=== PATIENT | female | born 2000 | race Two or more races ===

== ENCOUNTER 2024-02-27 20:42 | Inpatient (IN) | payer BC ==
[~2024-02-27] VITALS: Ht 152.4 cm; Wt 65.7 kg
[2024-02-27 21:37] LABS: COVID AG,FIA SOURCE NASAL SWAB
[2024-02-27] MEDS: HALOPERIDOL LACTATE 5 MG/ML VIAL IM ONE (21:46)
[2024-02-27] MEDS: LORazepam 2 MG/ML VIAL IM ONE (21:46)
[2024-02-27] MEDS: DiphenhydrAMINE HCL 50 MG/ML VIAL IM ONE (21:46)
[2024-02-27 21:50] LABS: BASOPHILS % (AUTO) 0.7 % (0.0-2.0); EOSINOPHILS % (AUTO) 0.7 % (1.0-6.0); HEMATOCRIT 42.7 % (36-46); HEMOGLOBIN 14.2 g/dL (12.0-16.0); LYMPHOCYTES # (AUTO) 2.3 K/uL (1.0-4.8); LYMPHOCYTES % (AUTO) 21.4 % (22.0-44.0); MEAN CORPUSCULAR HEMOGLOBIN 30.8 pg (26.0-34.0); MEAN CORPUSCULAR HGB CONC 33.3 G/dL (31.0-37.0); MEAN CORPUSCULAR VOLUME 92 fL (80-100); MONOCYTES # (AUTO) 0.3 K/uL (0.1-1.0); MONOCYTES % (AUTO) 2.7 % (2.0-9.0); NEUTROPHILS # (AUTO) 8.1 K/uL (1.8-7.7); NEUTROPHILS % (AUTO) 74.5 % (40.0-70.0); PLATELET COUNT (AUTO) 422 K/uL (150-450); RED BLOOD CELL COUNT(AUTO) 4.62 MIL/uL (4.00-5.20); RED CELL DISTRIBUTION WIDTH 13.4 % (11.5-14.5); WHITE BLOOD COUNT (AUTO) 10.9 K/uL (4.5-11.0)
[2024-02-27 21:55] LABS: ANION GAP 11 mmol/L (8-16); CALCIUM, TOTAL 8.6 mg/dL (8.8-10.5); CARBON DIOXIDE 26 mmol/L (22-29); CHLORIDE 106 mmol/L (98-107); CREATININE 0.87 mg/dL (0.60-1.30); GLOMERULAR FILTR. RATE CALC > 60 mL/min (>60); GLUCOSE,RANDOM 126 mg/dL (70-110); POTASSIUM 3.8 mmol/L (3.5-5.1); SODIUM SERUM 143 mmol/L (136-145); UREA NITROGEN, BLOOD 9 mg/dL (7-18)
[2024-02-27 21:56] LABS: ALCOHOL, BLOOD (SERUM) 262 mg/dL (0-10)
[2024-02-27 21:58] LABS: SARS-COV2 (COVID) ANTIGEN,FIA Negative (Negative)
[2024-02-28 00:32] LABS: PH,URINE DRUG SCREEN 5.5 (5.0-8.0)
[2024-02-28 00:43] LABS: ALCOHOL, URINE DRUG SCREEN POSITIVE (NEGATIVE); AMPHET/METH SCREEN,URINE NEGATIVE (NEGATIVE); BARBITURATE SCREEN, URINE NEGATIVE (NEGATIVE); BENZODIAZEPINES SCREEN,URINE POSITIVE (NEGATIVE); CANNABINOID SCREEN,URINE NEGATIVE (NEGATIVE); COCAINE SCREEN,URINE NEGATIVE (NEGATIVE); METHADONE SCREEN, URINE NEGATIVE (NEGATIVE); OPIATE SCREEN,URINE NEGATIVE (NEGATIVE); PHENCYCLIDINE SCREEN,URINE NEGATIVE (NEGATIVE)
[2024-02-28] MEDS ORDERED: LORazepam 2 MG TABLET PO PRN (01:00)
[2024-02-28] MEDS ORDERED: HALOPERIDOL 5 MG TABLET PO PRN (01:00)
[2024-02-28] MEDS ORDERED: ZOLPIDEM TARTRATE 10 MG TABLET PO PRN (01:00)
[2024-02-28 12:53] VITALS: O2SAT 98
[2024-02-28 14:55] VITALS: BP 124/88; PULSE 100; RESP 18; TEMP 97; O2SAT 100
[2024-02-28 20:49] VITALS: BP 108/58; PULSE 72; RESP 19; TEMP 97.9; O2SAT 98
[2024-02-29 08:40] VITALS: BP 121/66; PULSE 94; RESP 18; TEMP 98.2; O2SAT 97
[2024-02-29] MEDS ORDERED: CloNIDine HCL 0.1 MG TABLET PO PRN (09:00)
[2024-02-29] MEDS ORDERED: ALBUTEROL SULFATE HFA 90 MCG/PUFF 8 GM INHALER IH PRN (09:00)
[2024-02-29] MEDS ORDERED: IBUPROFEN 400 MG TABLET PO PRN (09:00)
[2024-02-29] MEDS ORDERED: MAG HYDROX/ALUMINUM HYD/SIMETH ES 30 ML SUSPENSION UDCUP PO PRN (09:00)
[2024-02-29] MEDS ORDERED: DOCUSATE SODIUM 100 MG CAPSULE PO PRN (09:00)
[2024-02-29] MEDS ORDERED: ONDANSETRON 4 MG TABLET PO PRN (09:00)
[2024-02-29] MEDS ORDERED: ACETAMINOPHEN 325 MG TABLET PO PRN (09:00)
[2024-02-29] MEDS ORDERED: LOPERAMIDE HCL 2 MG CAPSULE PO PRN (09:00)
[2024-02-29] MEDS ORDERED: GuaiFENesin/D-METHORPHAN [SUGAR-FREE] 200-20MG/10 ML SYRUP UDCUP PO PRN (09:00)
[2024-02-29] MEDS ORDERED: NICOTINE 14 MG/24 HOUR PATCH TD PRN (09:00)
[2024-02-29] MEDS ORDERED: PETROLATUM,WHITE 28 GM JELLY TP PRN (09:00)
[2024-02-29] MEDS ORDERED: MAGNESIUM HYDROXIDE SUSPENSION 30 ML UDCUP PO PRN (09:00)
[2024-02-29 21:51] VITALS: BP 110/72; PULSE 62; RESP 18; TEMP 98; O2SAT 100
[2024-03-01 08:38] VITALS: BP 113/75; PULSE 98; RESP 18; TEMP 97.7; O2SAT 100
== END 2024-03-01 10:45 | disposition home or self-care (01) | DRG 885 ==
LOC: EMS 20:42 → 3EI 02-28 12:09
PROVIDERS: ADMIT Psychiatry & Neurology Psychiatry; ATTEND Psychiatry & Neurology Psychiatry
DX: F33.2 Major depressive disorder, recurrent severe without psychotic features (principal); R45.851 Suicidal ideations; F10.129 Alcohol abuse with intoxication, unspecified; I10 Essential (primary) hypertension; Z20.822 Contact with and (suspected) exposure to COVID-19; R45.850 Homicidal ideations; F41.9 Anxiety disorder, unspecified; G47.00 Insomnia, unspecified; R73.9 Hyperglycemia, unspecified
CPT/HCPCS: 80048; 80307; 84703; 85025; 99291; G0480